=== PATIENT | female | born 1970 | race Caucasian/White ===

== ENCOUNTER 2016-09-16 22:29 | Inpatient (IN) ==
[2016-09-16] MEDS ORDERED: NS 1,000 ML ONE (22:45)
[2016-09-16] MEDS ORDERED: NS 1,000 ML IV ONE ×2 (22:59→23:23)
[2016-09-16 23:08] LABS: BASO% 0.4 % (0.0-0.8); EOS# 0.06 X1000 (0.0-0.7); EOS% 0.8 % (0.0-10.0); HEMATOCRIT 39.9 % (37.0-47.0); HEMOGLOBIN 13.2 g/dL (12.0-16.0); LYMPH# 2.49 X1000 (1.2-3.4); LYMPH% 32.5 % (20.5-51.1); MANUAL DIFF NEEDED? NO; MCH 29.1 PG (27-31); MCHC 33.1 g/dL (33-37); MCV 88.1 FL (81-99); MONO# 0.69 X1000 (0.11-0.59); MPV 11.1 FL (7.4-10.4); NEUT% 57.3 % (42.2-75.2); PLT 243 X1000 (130-400); RBC 4.53 XMIL (4.2-5.4)
[2016-09-16 23:17] LABS: INR 1.11; PROTIME 11.7 Seconds (9.2-11.7); PTT 26.6 Seconds (22.0-36.0)
[2016-09-16] MEDS ORDERED: NS 500 ML IV ONE (23:23)
[2016-09-16] MEDS ORDERED: VANCOMYCIN 1 GM/NS 1 GM/250 ML IVPB IV ONE (23:25)
[2016-09-16] MEDS ORDERED: ROCEPHIN 1 GM/NS 1 GM/50 ML IVPB IV ONE (23:25)
[2016-09-16] MEDS ORDERED: EPINEPHRINE 8 MG in D5W 250 ML IV SCH (23:30)
--- NOTE | 2016-09-16 23:36 | ED EKG INTERP ---
This chart was entered by Ernie Franks Scribe, acting as scribe for Kingston Brice MD. EKG Interpretation - EKG Time of EKG reading by physician:: 22:54 EKG Read and Signed by:: Kingston Brice EKG Interpretation (*Must complete 3 of following elements*): Normal Rate: 84 Rhythm: NSR This chart was documented by the indicated scribe, (Ernie Franks Scribe) and accurately reflects the services I performed and decisions made by me, Kingston Brice MD, as attested by the provider's signature.
[2016-09-16] MEDS: LEVOPHED 8 MG in D5 1/2 NS 250 ML IV SCH (23:40)
[2016-09-16 23:42] LABS: ALBUMIN 4.4 g/dL (3.5-5.0); CALCIUM 8.8 mg/dL (8.8-10.2); POTASSIUM 3.5 mmol/L (3.5-5.1); TOTAL BILIRUBIN 0.39 mg/dL (0.20-1.00); TOTAL PROTEIN 7.8 g/dL (6.3-8.3)
[2016-09-16] MEDS ORDERED: SOLU-CORTEF IV ONE (23:52)
[2016-09-16 23:55] LABS: ALLEN TEST YES; BE -9.5 mmoll (-3.0-3.0); BLOOD TYPE ARTERIAL; DRAW SITE R RADIAL; METHB 1.1 % (0.0-1.5); PCO2(98.6) 31 mmHg (35-45); PO2(98.6) 130 mmHg (60-100); SAMPLE BLOOD; SAO2 100.1 % (95.0-100.0); THB 11.6 g/dL (11.5-17.4); pH(98.6) 7.31 (7.35-7.45)
[2016-09-16 23:56] LABS: MODALITY CANNULA
[2016-09-17 00:07] LABS: CK INDEX 2.2 (0.0-2.5); CK-MB 20.03 ng/mL (0.0-5.0)
[2016-09-17 00:17] LABS: ACETAMINOPHEN < 1.2 ug/mL (10-30)
[2016-09-17] MEDS: LEVOPHED 8 MG in D5 1/2 NS 250 ML IV SCH ×4 (00:18→03:23)
[2016-09-17 00:29] LABS: URINE SOURCE CATH
[2016-09-17 00:36] LABS: BILIRUBIN URINE MODERATE (NEGATIVE); BLOOD URINE SMALL (NEGATIVE); CLARITY SLIGHTLY CLOUDY (CLEAR); COLOR YELLOW; GLUCOSE URINE NEGATIVE (NEGATIVE); LEUKOCYTES URINE TRACE (NEGATIVE); NITRITE URINE POSITIVE (NEGATIVE); PROTEIN URINE >=300 mg/dL (NEGATIVE); SP GRAVITY URINE >= 1.030
[2016-09-17 00:42] LABS: URINE EPITHELIAL CELLS >10 /HPF (<10); URINE RBC <10 /HPF (<10); URINE WBC 20-40 /HPF (<10)
[2016-09-17] MEDS ORDERED: NS 1,000 ML IV ONE ×2 (00:47→02:39)
[2016-09-17 01:15] LABS: UR AMPHETAMINES QUAL PRESUMPTIVE POSITIVE (NONE DETECT); UR BARBITUATES QUAL NONE DETECTED (NONE DETECT); UR BENZODIAZEPIN QUAL NONE DETECTED (NONE DETECT); UR CANNABINOIDS QUAL NONE DETECTED (NONE DETECT); UR COCAINE QUAL NONE DETECTED (NONE DETECT); UR METHADONE QUAL NONE DETECTED (NONE DETECT); UR OPIATES QUAL NONE DETECTED (NONE DETECT); UR OXYCODONE QUAL PRESUMPTIVE POSITIVE (NONE DETECT); UR PCP QUAL NONE DETECTED (NONE DETECT)
--- NOTE | 2016-09-17 01:35 | PROVIDER DOCUMENTATION ---
This chart was entered by Ernie Franks Scribe, acting as scribe for Kingston Brice MD. HPI-Fever - General Chief Complaint: Possible Sepsis-D Stated Complaint: syncope Time Seen by Provider: 09/16/16 22:46 Source: patient, family Allergies/Adverse Reactions: Patient Allergies Allergy/AdvReac Type Severity Reaction Status Date / Time morphine AdvReac Unknown Verified 09/16/16 22:53 Home Medications: Home Medication List Medication Instructions Recorded Confirmed Last Taken Type Gabapentin [Neurontin] 600 mg PO TID 06/25/15 05/14/16 05/14/16 07:00 History 600 MG Clonazepam [Klonopin] 1 mg PO BID 12/22/15 05/14/16 05/14/16 07:00 History 1 MG Cyclobenzaprine [Flexeril] 10 mg PO TID #20 tablet 03/12/16 05/14/16 05/14/16 07 :00 Rx 10 MG Vancomycin 05/20/16 Unknown History Mupirocin Calcium [Bactroban Nasal] 1 gm NS DAILY #7 oint...g. 07/15/16 Unknown Rx Promethazine [Phenergan] 25 mg PO Q6H PRN PRN #20 tablet 07/15/16 Unknown Rx Rifampin [Rimactane] 600 mg PO BID #28 capsule 07/15/16 Unknown Rx Sulfamethoxazole/Trimethoprim 1 each PO BID #60 tablet 07/15/16 Unknown Rx [Bactrim Ds Tablet] - History of Present Illness-Fever Nature of Presenting Problem: Pt is a 46 yowf who presents to ER via EMS after a syncopal episode earlier today. Pt admitted to smoking crystal meth for the past two days. Pt's sister reports that pt has been hallucinating yesterday as well as today, and pt complains of "pain all over" and also reports that she has had rectal bleeding recently. Pt's mother reports that pt's sister was an alcoholic with cirrhosis and pancreatitis, but from septic shock. Pt is also reported to have hx of crack cocaine abuse, no IV drug abuse. Fever Severity/Quality: reports: no fever Onset/Duration: reports: unsure, just prior to arrival Timing: reports: still present Severity: reports: moderate, severe Recent Illness?: reports: MRSA Cognitive Baseline: alert, oriented x3 Associated Symptoms: reports: fatigue, syncope, weakness, other ("pain all over "). denies: anxiety, chest pain, cough, diarrhea, fever/chills, shortness of breath Similar Symptoms Previously?: No Recently seen or treated by another doctor?: Yes Review of Systems - Adult - REVIEW OF SYSTEMS - ADULT Constitutional: reports: other ("pain all over"). denies: chills, fever, fatique, night sweats, weight gain, weight loss Eyes: reports: no symptoms reported Ears, Nose, Mouth & Throat: reports: no symptoms reported Cardiovascular: reports: syncope. denies: chest pain, heart murmur, irregular heart rate, palpitations, poor circulation Respiratory: reports: no symptoms reported Gastrointestinal: reports: no symptoms reported Genitourinary: reports: no symptoms reported Musculoskeletal: reports: no symptoms reported Integumentary: reports: no symptoms reported Neurological: reports: syncope. denies: ataxia, dizziness/vertigo, headache/ migraines, loss of balance, numbness, paresthesia, seizure, slurred speech, tremors Psychiatric: reports: alcohol/drug dependence (hx of crack cocaine abuse and recent abuse of crystal meth). denies: anti-depressant use, insomnia, panic attacks, suicidal thoughts Endocrine: reports: no symptoms reported Hematologic/Lymphatic: reports: no symptoms reported Allergic/Immunologic: reports: no symptoms reported All Other Systems: Reviewed and Negative Past History - Adult - PAST MEDICAL HISTORY-ADULT Review of Records: reports: Nursing Assessment Review, Medications Reviewed Cardiovascular: reports: HTN Respiratory: reports: asthma Gastrointestinal: reports: diverticulosis Obstetrical/Gynecological: reports: other (LMP current) Musculoskeletal: reports: chronic pain (back) Psychiatric: reports: depression Other Conditions: reports: MRSA (Respiratory tract) - PRIOR SURGERIES/PROCEDURES Surgical/Procedure History: reports: BTL, tonsillectomy, bowel surgery ( hemorrhoidectomy), joint replacement, other (nose, plastic ear tubes eye, anal fissure repair) - PRIOR HOSPITALIZATIONS Prior Hospitalizations: reports: for other non-related - IMMUNIZATION STATUS Childhood Immunizations: UTD, See Nurse Assessment Flu Vaccine: See Nurse Assessment - FAMILY HISTORY Family History: reviewed, not pertinent Physical Exam-General - PHYSICAL EXAM-ADULT Initial Vital Signs Reviewed: Yes - CONSTITUTIONAL General Appearance: alert, moderate distress, lethargic, slow to respond - EYES Eyes: PERRL/EOMI, pink conjunctivae - HEAD, EARS, NOSE, MOUTH & THROAT HENMT: normocephalic/atraumatic, moist mucous membranes, normal ENT inspection, TMs normal, pharynx normal. negative: pharyngeal erythema, tonsillar exudate, TM abnormal - NECK Neck: non-tender, full range of motion, supple, normal inspection. negative: C- spine tenderness, limited range of motion, lymphadenopathy - RESPIRATORY Respiratory: chest non-tender, lungs clear, normal breath sounds, no pleuratic chest pain, no respiratory distress, no accessory muscle use. negative: respiratory distress, decreased breath sounds, accessory muscle use, wheezing - CARDIOVASCULAR Cardiovascular: normal peripheral pulses, regular rate, rhythm, other (B/P (80/ 44) @ 2325). negative: bradycardia, tachycardia, irregularly irregular - GASTROINTESTINAL (ABDOMEN) Abdominal Exam: normal bowel sounds, soft, no organomegaly, no pulsatile mass, guarding, tenderness (diffuse with guarding). negative: non tender, rebound - LYMPHATIC Lymphatic: no adenopathy - MUSCULOSKELETAL Back Exam: normal inspection, no CVA tenderness, no vertebral tenderness. negative: CVA tenderness, vertebral tenderness Extremity: normal range of motion, non-tender, normal gait, normal inspection, no pedal edema, no calf tenderness, normal capillary refill, pelvis stable. negative: deformity, erythema, inflammation, swelling, tenderness - SKIN Integumentary: normal color, normal turgor, warm/dry. negative: abrasion(s), diaphoresis, ecchymosis, erythema, laceration(s), swelling, tenderness, warm - NEUROLOGIC Neurologic: bandsaw operator II-XII nml as tested, grossly normal, no motor/sensory deficits , other (GCS - 14). negative: facial droop, focal weakness, motor weakness, sensory deficit - PSYCHIATRIC Psych/Mental Status: oriented x 3, disheveled, depressed affect. negative: normal mood/affect, normal thought content, normal thought process Progress - PLAN OF CARE/RESULTS Progress/Plan/Lab Results: Vital Signs - 8 hr 09/16/16 22:36 09/16/16 22:47 09/16/16 23:13 Temperature 97.3 F L Pulse Rate 91 H 86 83 Respiratory Rate 14 14 19 Blood Pressure 80/50 78/42 O2 Sat by Pulse Oximetry 100 96 100 09/17/16 00:11 09/17/16 00:24 09/17/16 00:43 Temperature Pulse Rate 86 76 95 H Respiratory Rate 22 20 26 H Blood Pressure 126/75 95/51 91/69 O2 Sat by Pulse Oximetry 100 98 100 09/16/16 23:33 Stool Occult Blood (LESLIE) - Final Stool Laboratory Results - last 24 hr 09/16/16 09/16/16 09/16/16 22:44 22:44 22:44 WBC RBC Hgb Hct MCV MCH MCHC RDW Std Deviation Plt Count MPV Immature Gran % (Auto) Neut % (Auto) Lymph % (Auto) Thurston % (Auto) Eos % (Auto) Baso % (Auto) Immature Gran # (Auto) Neut # (Auto) Lymph # (Auto) Thurston # (Auto) Eos # (Auto) Baso # (Auto) PT INR PTT (Actin FS) Specimen Type Sample Site pH pCO2 pO2 HCO3 Base Excess Oxyhemoglobin ABG O2 Sat (Calculated) ABG O2 Saturation ABG Carboxyhemoglobin ABG Methemoglobin Fei Test A-a O2 Difference Total Hemoglobin Lactate Liter Flow Blood Gas Modality FiO2 % Sodium 139 Potassium 3.5 Chloride 98 Carbon Dioxide 19 L Anion Gap 22 BUN 30 H Creatinine 4.6 H Estimated GFR/1.73 m2 10 BUN/Creatinine Ratio 7 Glucose 90 Calculated Osmolality 283 Calcium 8.8 Total Bilirubin 0.39 AST 28 ALT 21 Alkaline Phosphatase 100 Creatine Kinase 930 H Creatine Kinase Index 2.2 CK-MB (CK-2) 20.03 H Troponin T 0.054 Total Protein 7.8 Albumin 4.4 Globulin 3.4 Albumin/Globulin Ratio 1.3 Urine Source Urine Color Urine Clarity Urine pH Ur Specific Nicholson Urine Protein Urine Ketones Urine Blood Urine Nitrite Urine Bilirubin Urine Urobilinogen Urine Microscopic RBC Urine WBC Urine Microscopic WBC Ur Epithelial Cells Urine Bacteria Urine Yeast Urine Glucose Urine Test Salicylates Urine Opiates Screen Ur Oxycodone Screen Ur Methadone, Qual Acetaminophen Ur Barbiturates Screen Ur Phencyclidine Scrn Ur Amphetamines Screen U Benzodiazepines Scrn Urine Cocaine Screen U Cannabinoids Screen Plasma/Serum Ethyl Alc 09/16/16 09/16/16 09/16/16 22:44 22:44 22:54 WBC 7.66 RBC 4.53 Hgb 13.2 Hct 39.9 MCV 88.1 MCH 29.1 MCHC 33.1 RDW Std Deviation 18.8 H Plt Count 243 MPV 11.1 H Immature Gran % (Auto) 0.0 Neut % (Auto) 57.3 Lymph % (Auto) 32.5 Thurston % (Auto) 9.0 Eos % (Auto) 0.8 Baso % (Auto) 0.4 Immature Gran # (Auto) 0.00 Neut # (Auto) 4.39 Lymph # (Auto) 2.49 Thurston # (Auto) 0.69 H Eos # (Auto) 0.06 Baso # (Auto) 0.03 PT 11.7 INR 1.11 PTT (Actin FS) 26.6 Specimen Type Sample Site pH pCO2 pO2 HCO3 Base Excess Oxyhemoglobin ABG O2 Sat (Calculated) ABG O2 Saturation ABG Carboxyhemoglobin ABG Methemoglobin Fei Test A-a O2 Difference Total Hemoglobin Lactate Liter Flow Blood Gas Modality FiO2 % Sodium Potassium Chloride Carbon Dioxide Anion Gap BUN Creatinine Estimated GFR/1.73 m2 BUN/Creatinine Ratio Glucose Calculated Osmolality Calcium Total Bilirubin AST ALT Alkaline Phosphatase Creatine Kinase Creatine Kinase Index CK-MB (CK-2) Troponin T Total Protein Albumin Globulin Albumin/Globulin Ratio Urine Source Urine Color Urine Clarity Urine pH Ur Specific Nicholson Urine Protein Urine Ketones Urine Blood Urine Nitrite Urine Bilirubin Urine Urobilinogen Urine Microscopic RBC Urine WBC Urine Microscopic WBC Ur Epithelial Cells Urine Bacteria Urine Yeast Urine Glucose Urine Test Salicylates < 3.00 L Urine Opiates Screen Ur Oxycodone Screen Ur Methadone, Qual Acetaminophen < 1.2 L Ur Barbiturates Screen Ur Phencyclidine Scrn Ur Amphetamines Screen U Benzodiazepines Scrn Urine Cocaine Screen U Cannabinoids Screen Plasma/Serum Ethyl Alc 09/16/16 09/17/16 09/17/16 23:46 00:05 00:05 WBC RBC Hgb Hct MCV MCH MCHC RDW Std Deviation Plt Count MPV Immature Gran % (Auto) Neut % (Auto) Lymph % (Auto) Thurston % (Auto) Eos % (Auto) Baso % (Auto) Immature Gran # (Auto) Neut # (Auto) Lymph # (Auto) Thurston # (Auto) Eos # (Auto) Baso # (Auto) PT INR PTT (Actin FS) Specimen Type ARTERIAL Sample Site R RADIAL pH 7.31 L pCO2 31 L pO2 130 H HCO3 17.5 L Base Excess -9.5 L Oxyhemoglobin 96.9 ABG O2 Sat (Calculated) 16.0 ABG O2 Saturation 100.1 H ABG Carboxyhemoglobin 2.10 ABG Methemoglobin 1.1 Fei Test YES A-a O2 Difference 59.0 Total Hemoglobin 11.6 Lactate 1.00 Liter Flow 3.0 Blood Gas Modality CANNULA FiO2 % 32.0 Sodium Potassium Chloride Carbon Dioxide Anion Gap BUN Creatinine Estimated GFR/1.73 m2 BUN/Creatinine Ratio Glucose Calculated Osmolality Calcium Total Bilirubin AST ALT Alkaline Phosphatase Creatine Kinase Creatine Kinase Index CK-MB (CK-2) Troponin T Total Protein Albumin Globulin Albumin/Globulin Ratio Urine Source Urine Color Urine Clarity Urine pH Ur Specific Nicholson Urine Protein Urine Ketones Urine Blood Urine Nitrite Urine Bilirubin Urine Urobilinogen Urine Microscopic RBC Urine WBC Urine Microscopic WBC Ur Epithelial Cells Urine Bacteria Urine Yeast Urine Glucose Urine Test NEGATIVE Salicylates Urine Opiates Screen NONE DETECTED Ur Oxycodone Screen PRESUMPTIVE POSITIVE A Ur Methadone, Qual NONE DETECTED Acetaminophen Ur Barbiturates Screen NONE DETECTED Ur Phencyclidine Scrn NONE DETECTED Ur Amphetamines Screen PRESUMPTIVE POSITIVE A U Benzodiazepines Scrn NONE DETECTED Urine Cocaine Screen NONE DETECTED U Cannabinoids Screen NONE DETECTED Plasma/Serum Ethyl Alc 09/17/16 00:05 WBC RBC Hgb Hct MCV MCH MCHC RDW Std Deviation Plt Count MPV Immature Gran % (Auto) Neut % (Auto) Lymph % (Auto) Thurston % (Auto) Eos % (Auto) Baso % (Auto) Immature Gran # (Auto) Neut # (Auto) Lymph # (Auto) Thurston # (Auto) Eos # (Auto) Baso # (Auto) PT INR PTT (Actin FS) Specimen Type Sample Site pH pCO2 pO2 HCO3 Base Excess Oxyhemoglobin ABG O2 Sat (Calculated) ABG O2 Saturation ABG Carboxyhemoglobin ABG Methemoglobin Fei Test A-a O2 Difference Total Hemoglobin Lactate Liter Flow Blood Gas Modality FiO2 % Sodium Potassium Chloride Carbon Dioxide Anion Gap BUN Creatinine Estimated GFR/1.73 m2 BUN/Creatinine Ratio Glucose Calculated Osmolality Calcium Total Bilirubin AST ALT Alkaline Phosphatase Creatine Kinase Creatine Kinase Index CK-MB (CK-2) Troponin T Total Protein Albumin Globulin Albumin/Globulin Ratio Urine Source CATH Urine Color YELLOW Urine Clarity SLIGHTLY CLOUDY A Urine pH 5.0 Ur Specific Nicholson >= 1.030 Urine Protein >=300 A Urine Ketones TRACE A Urine Blood SMALL A Urine Nitrite POSITIVE A Urine Bilirubin MODERATE A Urine Urobilinogen 1.0 Urine Microscopic RBC <10 Urine WBC TRACE A Urine Microscopic WBC 20-40 A Ur Epithelial Cells >10 A Urine Bacteria 1+ Urine Yeast PRESENT Urine Glucose NEGATIVE Urine Test Salicylates Urine Opiates Screen Ur Oxycodone Screen Ur Methadone, Qual Acetaminophen Ur Barbiturates Screen Ur Phencyclidine Scrn Ur Amphetamines Screen U Benzodiazepines Scrn Urine Cocaine Screen U Cannabinoids Screen Plasma/Serum Ethyl Alc Orders Category Date Time Status Bladder Scan and Record Result ORDERED Care 09/16/16 23:21 Active Cardiac Monitoring DIRECTED Care 09/16/16 22:54 Active ED: Orthostatic Vital Signs (E as directed Care 09/16/16 22:58 Inactive Finger Stick Blood Sugar (ED) DIRECTED Care 09/16/16 22:54 Active Mack Cath Insertion ORDERED Care 09/16/16 23:06 Active IV Insertion ORDERED Care 09/16/16 23:23 Completed Intake and Output-Strict ORDERED Care 09/16/16 23:23 Active Notify MD of + Sepsis Screen NOW Care 09/16/16 23:24 Active Notify MD/PA/INFORMATION TECHNOLOGY PROGRAM MANAGER for exam NOW Care 09/16/16 23:23 Active Oxygen Therapy- ED Nursing DIRECTED Care 09/16/16 22:54 Active Repeat Vital Signs .Blood Pressure Care 09/16/16 23:23 Active Repeat Vital Signs .Heart Rate Care 09/16/16 23:23 Active Repeat Vital Signs .Oxygen Saturation Care 09/16/16 23:23 Active Repeat Vital Signs .Respiratory Rate Care 09/16/16 23:23 Active Repeat Vital Signs .Temp Care 09/16/16 23:23 Active Saline Loc NOW Care 09/16/16 22:54 Active ABDOMEN/PELVIS W/O CONTRAST [CT] Stat Exams 09/17/16 01:31 Ordered CHEST-1 VIEW [RAD] Stat Exams 09/16/16 23:[address] THORAX W/O CONTRAST [CT] Stat Exams 09/17/16 01:32 Ordered HEAD/C-SPINE/THORAX/PELVIS/ABD [CT] Stat Exams 09/16/16 23:24 Ordered ABG [RESP] Routine Lab 09/16/16 23:46 Completed ACETAMINOPHEN [TDM] Stat Lab 09/16/16 22:44 Completed ALCOHOL BLOOD Stat Lab 09/16/16 22:44 Completed BLOOD CULTURE [BLDCUL] Stat Lab 09/17/16 00:55 Received CBC WITH ELECTRONIC DIFF [HEME] Stat Lab 09/16/16 22:54 Completed CK PROFILE [SP CHEM] Stat Lab 09/16/16 22:44 Completed COMPREHENSIVE METABOLIC PANEL [CHEM] Stat Lab 09/16/16 22:44 Completed LACTATE, PLASMA [CHEM] Timed Lab 09/16/16 23:23 Ordered TEST-URINE [PREG] Stat Lab 09/17/16 00:05 Completed PROTIME WITH INR [COAG] Stat Lab 09/16/16 22:44 Completed PTT [COAG] Stat Lab 09/16/16 22:44 Completed SALICYLATES [TDM] Stat Lab 09/16/16 22:44 Completed Stool [OCCULT BLOOD SCREENING] [STOOL] Stat Lab 09/16/16 23:33 Completed TROPONIN T Stat Lab 09/16/16 22:44 Completed TYPE & SCREEN [BBK] Stat Lab 09/17/16 00:55 Received URINE DRUG SCREEN Stat Lab 09/17/16 00:05 Completed 0.9% Sodium Chloride Inj [Ns] 1,000 ml Med 09/16/16 22:45 Discontinued .ROUTE As Directed 0.9% Sodium Chloride Inj [Ns] 1,000 ml Med 09/16/16 22:59 Discontinued IV 999 mls/hr 0.9% Sodium Chloride Inj [Ns] 1,000 ml Med 09/16/16 23:23 Discontinued IV As Directed 0.9% Sodium Chloride Inj [Ns] 500 ml Med 09/16/16 23:23 Discontinued IV 999 mls/hr CefTRIAXONE 1 GM/NS [Rocephin 1 gm/Ns] Med 09/16/16 23:25 Discontinued 1 gm in 50 ml IV NOW Dextrose 5%-0.45% NaCl Inj [D5 1/2 Ns] 250 ml Med 09/16/16 23:30 Active Norepinephrine [Levophed] 8 mg IV As Directed Dextrose 5%-Water Inj [D5w] 250 ml Med 09/16/16 23:30 Active Epinephrine 8 mg IV As Directed Hydrocortisone Sod Succinate [Solu-Cortef] Med 09/16/16 23:52 Discontinued 100 mg IV NOW ONE Vancomycin 1 gm/Ns Med 09/16/16 23:25 Discontinued 1 gm in 250 ml IV NOW Oxygen Device Stat Oth 09/16/16 23:24 Active Pulse Oximetry Stat Oth 09/16/16 22:54 Active EKG [EKG] Stat Ther 09/16/16 22:54 Ordered Result Diagrams: 09/16/16 22:54 09/16/16 22:44 Procedures - CENTRAL LINE Time-Out Verification Completed?: Yes Central Line Lumen: triple Central Line Procedure Prep: Hand Hygeine Performed, Kit Utilized Patient Position (To prevent Air Embolism): Trendelenburg (SC/IJ) Central Line Position: internal jugular (L) Ultrasound Guided?: Yes Hat, mask, sterile gown, & sterile gloves worn by physician?: Yes Site scrubbed vigorously for 30 seconds? (Groin: 2 min): Yes Anesthetic: 1%, Lidocaine/Xylocaine Volume of Anesthetic (ml's): 4 Post Procedure: Sutured in place, Sterile field maintained, BioPatch placed, Sterile dressing applied, Blood aspirated from each lumen, Placement verfied by XRAY Procedure Comment: Physician was assissted by Physician's Assisstant [place] Departure - Departure Time of Disposition Decision: 01:35 DIAGNOSIS: Methamphetamine abuse Urinary tract infection Qualifiers: Urinary tract infection type: site unspecified Hematuria presence: with hematuria Qualified Code(s): N39.0 - Urinary tract infection, site not specified ; R31.9 - Hematuria, unspecified Disposition: ADMITTED INPATIENT 09 Certified Medical Emergency: Emergent Condition: Stable Referrals and Follow-Ups: Ksenia Rabago [Primary Care Provider] - - Critical Care Note This patient required my direct & personal management of CC.: Yes This chart was documented by the indicated scribe, (Ernie Franks Scribe) and accurately reflects the services I performed and decisions made by me, Kingstno Brice MD, as attested by the provider's signature.
[2016-09-17] MEDS ORDERED: SODIUM BICARBONATE 8.4% IV PUSH ONE (02:28)
[2016-09-17] MEDS ORDERED: SODIUM BICARBONATE 8.4% 50 MEQ in NS 1,000 ML IV ONE (03:00)
--- NOTE | 2016-09-17 05:30 | HISTORY AND PHYSICAL ---
PRIMARY CARE PHYSICIAN: CHIEF COMPLAINT: Overdose on meth. HISTORY OF PRESENTING ILLNESS: A 46-year-old female with a history of hypertension, chronic low back pain. Apparently, she states that she took some crystal meth, then all of a sudden she passed out. She does not really recall much but was brought to the emergency department where she was evaluated. Patient was evaluated in the emergency department where she was found to be markedly hypotensive. She was given IV fluid resuscitation and she improved somewhat. The patient was found to be in renal failure and also to have elevated CPK consistent with rhabdomyolysis. Subsequently, patient will need hospitalization for further management. At the time of my examination, she was somewhat drowsy. However, she had denied having any headache, fever, chills, chest pain, shortness of breath, hemoptysis or any weight changes. PAST MEDICAL HISTORY: Includes hypertension, chronic low back pain. PAST SURGICAL HISTORY: Right hip replacement. ALLERGIES: To morphine. CURRENT MEDICATIONS: As listed in the MAR. SOCIAL HISTORY: Thirty-five pack years history of smoking. History of alcohol abuse in the past. History of drug use including meth, cocaine and marijuana. FAMILY HISTORY: No history of coronary disease. REVIEW OF SYSTEMS: Twelve point review of systems is as in HPI. Other systems negative. PHYSICAL EXAMINATION: GENERAL: Cooperative, friendly, obese female. She is resting comfortably now. VITAL SIGNS: Temperature 97.8 degrees, pulse 98, respirations 16, blood pressure 112/85 after fluids. HEENT: Atraumatic, normocephalic. PERRLA. Extraocular movements intact. NECK: Some mild swelling where the subclavian catheter was attempted. CHEST: Clear to auscultation. CARDIOVASCULAR: Regular rate and rhythm. ABDOMEN: Soft, obese, positive bowel sounds. EXTREMITIES: No edema. NEUROLOGIC: She is awake, alert, oriented x2. GENITOURINARY: No bladder distention. SKIN: Warm. LABORATORIES AND STUDIES: Sodium 139, potassium 3.5, chloride is 98, CO2 is 19, BUN is 30, creatinine 4.6, glucose is 90. WBC 7.66, hemoglobin 13.2, hematocrit 39.9, platelets 243,000. UA is nitrite positive, +1 bacteria. ASSESSMENT: A 46-year-old female with a history of hypertension and chronic low back pain. Apparently took some crystal meth and then shortly after that she passed out. She was brought to the emergency department. She was found to be hypotensive and in renal failure. She also have rhabdomyolysis and due to these presenting symptoms it was thought that she would need hospitalization for further management. 1. Hypotension. 2. Drug overdose with crystal methamphetamine. 3. Acute rhabdomyolysis. 4. Acute kidney injury. 5. Urinary tract infection. PLAN: 1. We will admit patient to ICU. 2. We will continue with IV fluids. The patient may need pressors for blood pressure support. 3. We will monitor renal function. 4. We will also monitor CPKs. 5. We will put patient on IV antibiotics and check urine cultures. 6. We will put patient on DVT prophylaxis with SCDs. 7. We will continue to follow and reassess. cc: Mateo Peacock MD
[2016-09-17] MEDS ORDERED: ZOFRAN IV PRN (05:38)
--- NOTE | 2016-09-17 06:26 | Diag Imaging Result Doc PS360 ---
EXAM: CHEST-1 VIEW HISTORY: hypotension, possible sepsis TECHNIQUE: COMPARISON: 11/05/2015 FINDINGS: The lungs are well expanded. The heart is not enlarged. The vessels are not distended. There are no infiltrates. No effusion identified. Prominent aortic arch. IMPRESSION: Possible aneurysm to aortic arch. Electronically signed by Manas Maynard 09/17/2016 6:24 AM
[2016-09-17] MEDS: NS 1,000 ML IV SCH ×3 (07:10→22:41)
--- NOTE | 2016-09-17 07:10 | EKG Report ---
Test Performed on : 09/16/2016 10:54:18 PM Test Reason : AMS Blood Pressure : / mmHG Vent. Rate : 084 BPM Atrial Rate : 084 BPM P-R Int : 146 ms QRS Dur : 084 ms QT Int : 404 ms P-R-T Axes : 046 041 041 degrees QTc Int : 477 ms Normal sinus rhythm. Normal ECG When compared with ECG of 28-JAN-2009 09:36, No significant change was found Unconfirmed Result
--- NOTE | 2016-09-17 09:15 | Diag Imaging Result Doc PS360 ---
EXAM: HEAD/C-SPINE/THORAX/PELVIS/ABD HISTORY: head injury, altered, poss sepsis, abd pain TECHNIQUE: COMPARISON: None. FINDINGS: Brain: No parenchymal hemorrhage. No epidural or subdural hematoma. No subarachnoid hemorrhage. No skull fracture. No hydrocephalus. Decompressed nasal bone. This may not be acute. Metal lies adjacent to the lateral wall the right maxillary sinus. This may be due to prior surgery. Cervical spine: There is good alignment of the cervical spine. No precervical soft tissue swelling. No subluxation. No fracture. CHEST: No lung contusion or pneumothorax. No pleural effusions. No thoracic aortic aneurysm or dissection. There are small mediastinal lymph nodes. There is a tiny amount of increased markings about the proximal left common carotid artery near the proximal subclavian artery which may represent a small hematoma. No fracture identified. Abdomen and pelvis: There is fatty infiltration of the liver. No hepatic or splenic laceration. No fluid about the liver or spleen. Normal enhancement of the kidneys. No retroperitoneal hematoma. Normal pancreas, gallbladder, adrenal glands, and aorta. No bowel obstruction. Normal appendix. No abscess. A Mack catheter has the urinary bladder decompressed. Prior orthopedic placement of a right hip. Normal uterus. No free air. No fracture identified. IMPRESSION: 1.Head: No hemorrhage. No injury. Likely old nasal fracture. 2.CHEST: Suspect a small hematoma surrounding the proximal left common carotid and subclavian arteries. No other injury to the chest identified. 3.Cervical spine: No acute fracture 4.Abdomen and pelvis: No acute injury. 5.A preliminary report was given at 2:13 AM Electronically signed by Manas Maynard 09/17/2016 9:12 AM
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
[2016-09-17] MEDS ORDERED: TYLENOL PO PRN (15:33)
[2016-09-17] MEDS ORDERED: STERILE WATER INJ. INJ ONE (19:57)
[2016-09-17] MEDS ORDERED: GEODON IM ONE (19:57)
[2016-09-18] MEDS: LEVOPHED 8 MG in D5 1/2 NS 250 ML IV SCH (01:00)
[2016-09-18] MEDS: ROCEPHIN 1 GM/NS 1 GM/50 ML IVPB IV SCH (02:15)
[2016-09-18] MEDS: NS 1,000 ML IV SCH ×3 (05:39→21:16)
[2016-09-18 05:43] LABS: MANUAL DIFF NEEDED? NO
[2016-09-18 05:58] LABS: BASO% 0.2 % (0.0-0.8); EOS# 0.07 X1000 (0.0-0.7); EOS% 1.7 % (0.0-10.0); HEMATOCRIT 33.7 % (37.0-47.0); HEMOGLOBIN 10.7 g/dL (12.0-16.0); LYMPH# 1.51 X1000 (1.2-3.4); LYMPH% 35.9 % (20.5-51.1); MCH 28.5 PG (27-31); MCHC 31.8 g/dL (33-37); MCV 89.6 FL (81-99); MONO% 7.1 % (1.7-9.3); MPV 11.4 FL (7.4-10.4); NEUT% 55.1 % (42.2-75.2); PLT 124 X1000 (130-400); RBC 3.76 XMIL (4.2-5.4)
[2016-09-18 06:35] LABS: AGAP 11; BUN 7 mg/dL (8-22); CALCIUM 7.6 mg/dL (8.8-10.2); CHLORIDE 111 mmol/L (98-107); COSMO 286; POTASSIUM 3.4 mmol/L (3.5-5.1); SODIUM 145 mmol/L (136-145); TCO2 23 mmol/L (25-35)
[2016-09-18] MEDS ORDERED: FLEXERIL PO PRN (11:50)
[2016-09-18] MEDS: PERCOCET-10 PO SCH ×3 (12:25→21:08)
--- NOTE | 2016-09-18 12:28 | PROGRESS NOTE ---
DATE: 09/18/2016 SUBJECTIVE: Today Ms. Ibarra refers to be doing okay. Denies any major complaints except generalized body pains and also left shoulder pain. OBJECTIVE: Vital signs: Blood pressure is 95/62, pulse is 94, respirations 19, temperature 97.8 degrees. General: Ms. Ibarra is a 46-year-old female. She was in bed. Not in distress. HEENT: Mucosa is pink and moist. Anicteric. Acyanotic. Neck: Supple. There is the left subclavian line in place. Cardiovascular: Regular rate and rhythm. Abdomen: Soft. Extremities: No pedal edema. REHABILITATION NURSE: Patient is now alert and oriented x4. LABORATORY DATA: WBC is 4.21, hemoglobin is 10.7, platelet count of 124,000. Chemistry is reviewed. Sodium is 145, potassium is 3.4, chloride is 1,000, bicarb is 23, creatine kinase is 656, creatinine is down to 0.6. Urine shows gram-negative young. Beryl is more than 100,000. ASSESSMENT: 1. Altered mental status on presentation due toxic encephalopathy from recreational street drugs. 2. Methamphetamine and oxycodone overdose. 3. Hypotension, likely due to drug reaction. 4. Rhabdomyolysis. 5. Acute kidney injury on presentation, improved. 6. Suspected abuse of prescription drugs. PLAN: Patient is doing a lot better. She is currently off the pressor. We are going to move her from the ICU to a regular floor. We will continue with the current antibiotics until we know the gram-negative young ID and sensitivity. We will restart the patient on some of her home medications since she has been on them for a very, very long time to prevent any withdrawal. We are going to remove the Mack catheter and anticipate that we can discharge the patient home tomorrow. cc: Manan Holly MD
[2016-09-18] MEDS: NEURONTIN PO SCH (21:07)
[2016-09-18] MEDS: KLONOPIN PO SCH (21:07)
[2016-09-19] MEDS: PERCOCET-10 PO SCH ×4 (00:14→12:20)
[2016-09-19] MEDS: ROCEPHIN 1 GM/NS 1 GM/50 ML IVPB IV SCH (02:26)
[2016-09-19] MEDS: NS 1,000 ML IV SCH (05:17)
[2016-09-19 06:59] LABS: MANUAL DIFF NEEDED? NO
[2016-09-19] MEDS ORDERED: PRILOSEC PO SCH (07:00)
[2016-09-19 07:09] LABS: BASO% 0.4 % (0.0-0.8); EOS# 0.06 X1000 (0.0-0.7); EOS% 1.3 % (0.0-10.0); HEMATOCRIT 33.3 % (37.0-47.0); HEMOGLOBIN 10.6 g/dL (12.0-16.0); LYMPH# 1.48 X1000 (1.2-3.4); LYMPH% 33.1 % (20.5-51.1); MCH 28.8 PG (27-31); MCHC 31.8 g/dL (33-37); MCV 90.5 FL (81-99); MONO# 0.33 X1000 (0.11-0.59); MONO% 7.4 % (1.7-9.3); MPV 10.7 FL (7.4-10.4); NEUT% 57.8 % (42.2-75.2); PLT 97 X1000 (130-400); RBC 3.68 XMIL (4.2-5.4)
[2016-09-19 07:35] LABS: AGAP 13; BUN 7 mg/dL (8-22); CALCIUM 7.4 mg/dL (8.8-10.2); CHLORIDE 109 mmol/L (98-107); CK PROFILE 94 U/L (24-173); COSMO 282; POTASSIUM 3.7 mmol/L (3.5-5.1); SODIUM 143 mmol/L (136-145); TCO2 21 mmol/L (25-35)
[2016-09-19] MEDS: NEURONTIN PO SCH (08:11)
[2016-09-19] MEDS: KLONOPIN PO SCH (08:11)
[2016-09-19 14:37] VITALS: BP 131/69
--- NOTE | 2016-09-19 15:56 | DISCHARGE SUMMARY ---
ADMISSION DATE: 09/16/2016 DISCHARGE DATE: 09/19/2016 DATE OF ADMISSION: 09/17/2016. DATE OF DISCHARGE: 09/19/2016. CONSULTATIONS: None. PERTINENT PROCEDURES: Head, cervical spine, chest, abdomen, pelvis CT: Showed no hemorrhage. No injury. Likely old nasal fracture of the head and chest suspect small hematoma surrounding the proximal left common carotid and subclavian arteries. No other injury to the chest identified. Cervical spine: No acute fracture. Abdomen and pelvis: No acute injury. DISCHARGE DIAGNOSES: 1. Altered mental status on presentation secondary to toxic encephalopathy from recreational street drug use. 2. Methamphetamine and oxycodone overdose. 3. Hypertension secondary to drug reaction, resolved. 4. Rhabdomyolysis, resolved. 5. Acute kidney injury on presentation, improved. 6. Suspected abuse of prescription drugs. The patient has been educated about cessation as well abstinence from prescription and/or illicit drug use. 7. Klebsiella UTI. HOSPITAL COURSE: Ms. Ibarra is a 46-year-old female who carries a history of Hypertension and Chronic low back pain. The patient did crystal meth when she all of a sudden, passed out. She did not really recall much, but she was brought to the emergency room, where she was evaluated. She was found to be markedly hypotensive. She was given IV fluid resuscitation. She improved somewhat. The patient was found to be in renal failure and had an elevated CPK consistent with rhabdomyolysis. She was admitted for metabolic encephalopathy secondary to drug overdose with crystal methamphetamine. She was admitted to the Intensive Care Unit. She was continued on aggressive IV fluid hydration as well as the need for vasopressors for blood pressure support. She was also placed on IV antibiotics for a urinary tract infection. The patient was moved out of the Intensive Care Unit on 09/18/2016 to a regular floor, where she was observed overnight. The patient has clinically improved. She was taken off all vasopressors. She was continued on current antibiotics for gram-negative rods. She was restarted on some home medications that she has been on for a very long time to prevent any withdrawal. Her Mack catheter was removed and she is being discharged home today. VITAL SIGNS: Temperature is 98.1 degrees, heart rate 97, respirations 20, blood pressure 128/78, O2 is 97% on room air. DISCHARGE MEDICATIONS: As per Dr. Holly: 1. Keflex 500 mg p.o. every 12 hours for 5 days. 2. Klonopin 1 mg p.o. b.i.d. 3. Flexeril 10 mg p.o. p.r.n. 4. Neurontin 800 mg p.o. b.i.d. 5. Prinivil 10 mg p.o. daily. 6. Prilosec 40 mg p.o. daily. 7. Percocet 10/325, 1 each p.o. every 4 hours p.r.n. DISPOSITION: The patient is being discharged home. Her central line will be discontinued prior to her being discharged. FOLLOWUP CARE: She will follow up with her primary care physician and return to the emergency department for any worsening of symptoms. Again, she has been educated against illicit drug use. The patient can return to the emergency department for any worsening of symptoms. DISCHARGE TIME: 30 minutes. This is SHOAIB Lewis, doing a discharge summary for Dr. Holly. Dictated by SHOAIB Lewis for Manan Holly MD cc: Manan Holly MD Patient wanted me to re-prescribe her pain and sedatives medications but i recommended she goes back to her PCP who has been prescribing it in the past. MTDD
[2016-09-19] MEDS ORDERED: KEFLEX PO SCH (21:00)
== END 2016-09-19 16:20 | disposition home or self-care (01) ==
LOC: ED 22:29 → SUATTDRO 22:30 → ICU 22:30 → 3N 09-18 14:19
PROVIDERS: ATTEND Internal Medicine